=== PATIENT | male | born 1965 | race Caucasian/White ===

== ENCOUNTER 2016-07-16 12:28 | Emergency (ER) | payer OTHER | END 2016-07-16 17:25 | disposition home or self-care (01) | LOC: ER1 12:28 | DX: N45.1 Epididymitis (principal); N39.0 Urinary tract infection, site not specified | CPT/HCPCS: 36415; 76870; 81001; 87077; 87086; 87186; 96372; 99284; J0696 ==

== ENCOUNTER 2016-08-08 00:49 | Observation (INO) | payer OTHER ==
[~2016-08-08] VITALS: Ht 198.1 cm; Wt 104.3 kg
[2016-08-08 05:10] LABS: HEMOGLOBIN 13.9 gm/dl (14.0-17.5); RED BLOOD COUNT 4.1 M/UL (4.20-5.50); WHITE BLOOD COUNT 8.3 K/UL (4.5-11.0)
[2016-08-08 05:31] LABS: BUN/CREATININE RATIO 12 (0-10)
[2016-08-08] MEDS ORDERED: VIBRAMYCIN 100100 MG PO (10:43)
[2016-08-08] MEDS ORDERED: ZOFRAN8 MG PO (10:44)
[2016-08-08] MEDS ORDERED: IBUPROFEN600 MG PO (10:44)
[2016-08-08] MEDS ORDERED: ASPIR-LOW81 MG PO (10:44)
[2016-08-08] MEDS ORDERED: ZANTAC 7575 MG PO (19:46)
== END 2016-08-08 20:15 | disposition home or self-care (01) ==
LOC: ER1 00:49 → ZEROF 06:25 → M/S 07:55
PROVIDERS: Physician Assistant; ADMIT Internal Medicine
DX: M77.12 Lateral epicondylitis, left elbow (principal); R07.89 Other chest pain; I10 Essential (primary) hypertension; N45.1 Epididymitis; F17.290 Nicotine dependence, other tobacco product, uncomplicated; Z79.82 Long term (current) use of aspirin; Z79.899 Other long term (current) drug therapy; Z79.2 Long term (current) use of antibiotics; Z82.49 Family history of ischemic heart disease and other diseases of the circulatory system; M79.602 Pain in left arm
CPT/HCPCS: ECHO; 36415; 71010; 80053; 80061; 82550; 82553; 83036; 83874; 84443; 84484; 85025; 93005; 93306; 99285; G0378

== ENCOUNTER → 2016-08-26 | Outpatient (CLI) | payer OTHER ==
[~2016-08-26] MED LIST: ASPIR-LOW81 MG PO; IBUPROFEN600 MG PO; VIBRAMYCIN 100100 MG PO; ZANTAC 7575 MG PO; ZOFRAN8 MG PO
== END ==
LOC: US 08-19 10:30
DX: N50.819 Testicular pain, unspecified (principal); N43.3 Hydrocele, unspecified; N50.3 Cyst of epididymis
CPT/HCPCS: 76870

== ENCOUNTER → 2016-09-30 | Day surgery (SDC) | payer OTHER ==
[~2016-09-30] VITALS: Ht 198.1 cm; Wt 104.8 kg
== END | disposition home or self-care (01) ==
LOC: OR 07:32
PROVIDERS: Surgery
PROC: 0DJD8ZZ Inspection of Lower Intestinal Tract, Via Natural or Artificial Opening Endoscopic (ICD-10-PCS; principal; 2016-09-30 10:40)
DX: Z12.11 Encounter for screening for malignant neoplasm of colon (principal); K21.9 Gastro-esophageal reflux disease without esophagitis; M17.10 Unilateral primary osteoarthritis, unspecified knee; F17.210 Nicotine dependence, cigarettes, uncomplicated; Z82.49 Family history of ischemic heart disease and other diseases of the circulatory system; Z83.3 Family history of diabetes mellitus; Z79.2 Long term (current) use of antibiotics; Z79.899 Other long term (current) drug therapy
CPT/HCPCS: J2250; J3010; J7120

== ENCOUNTER → 2016-10-11 | Outpatient (CLI) | payer OTHER | LOC: EXRD 09:08 | DX: M54.5 Low back pain (principal); M54.6 Pain in thoracic spine; M47.894 Other spondylosis, thoracic region; M46.04 Spinal enthesopathy, thoracic region; M51.37 Other intervertebral disc degeneration, lumbosacral region | CPT/HCPCS: 72070; 72100 ==

== ENCOUNTER → 2021-02-08 | Outpatient (CLI) | payer OTHER ==
[~2021-02-08] MED LIST changes: +CHILDREN'S ASPI81 MG PO; +FLEXERIL 10 MG10 MG PO; +HYDROCHLOROTHIA25 MG PO; +INDOMETHACIN25 MG PO; +KEFLEX500 MG PO; +LIPITOR10 MG PO; +OMEPRAZOLE20 M1 PO
== END ==
LOC: CT 11:28
DX: R10.13 Epigastric pain (principal); R63.4 Abnormal weight loss
CPT/HCPCS: Q9967

== ENCOUNTER → 2021-12-07 | Outpatient (CLI) | payer OTHER | LOC: CT 12-05 14:00 | DX: D35.02 Benign neoplasm of left adrenal gland (principal); N28.1 Cyst of kidney, acquired; R31.9 Hematuria, unspecified; Z72.0 Tobacco use | CPT/HCPCS: 82565; 84520; Q9967 ==